=== PATIENT | female | born 1980 | race Caucasian/White ===

== ENCOUNTER → 2017-07-12 13:02 | Outpatient (CLI) | payer OTHER, SELFPAY ==
[2017-07-17 11:23] LABS: HPV Reflexed? NOT INDICATED
== END ==
PROVIDERS: Visit Provider Obstetrics & Gynecology
DX: Z12.4 Encounter for screening for malignant neoplasm of cervix (principal)
CPT/HCPCS: 88175; G0145

== ENCOUNTER → 2018-02-07 12:57 | Outpatient (CLI) | payer OTHER, SELFPAY ==
[2017-06-02 13:32] VITALS: BMI 61.1
[2018-02-07 14:25] LABS: Free T3 2.4 pg/mL (2.18-3.98); T4 Free Direct 0.94 ng/dL (0.76-1.46); Thyroid Stim Hormone (TSH) 1.77 uIU/mL (0.358-3.74)
[2018-02-07 14:29] LABS: Hemoglobin A1c 7.1 % (4.2-6.3)
--- OUTSIDE RECORDS SUMMARY | 2018-03-26 08:12 | XMS RPT_ITS ---
:1980 Author Organization OHIP Care Team Providers Name Role Phone JAMES BILLINGSLEY Referring Unavailable JAMES BILLINGSLEY Attending Unavailable Kadi Dougherty Attending Unavailable Kadi Dougherty Referring Unavailable Kadi Dougherty Primary Care Unavailable Umu Simmons Attending Unavailable Gissell Santacruz Referring Unavailable Noam Gissell Primary Care Unavailable Steph Santos Attending Unavailable PROBLEMS PROBLEMS DATE TYPE CONDITION / CODE ATTENDING STATUS SOURCE 02/05/2017 Active Hypothyroidism, NA Active [facility] unspecified / [facility] Main E03.9(ICD-10) [place] Rep[facility] 08/14/2016 Active Type 2 diabetes NA Active [facility] mellitus with other Clinic Main diabetic kidney [place] complication / Repository E11.29(ICD-10) 08/14/2016 Active Proteinuria, NA Active [facility] unspecified / [facility] R80.9(ICD-10) [place] 08/14/2016 Active Hyperlipidemia, NA Active [facility] unspecified / [facility] E78.5(ICD-10) [place] Rep[facility] 10/15/2017 Active Mixed hyperlipidemia NA Active [facility] / E78.2(ICD-10) Clinic Main [place] Rep[facility] 10/15/2017 Active Other shelter NA Active [facility] (current) drug [facility] Main therapy / [place] Z79.899(ICD-10) Repository 07/12/2017 Unknown Z12.4 - Encounter Steph Santos Active [facility] for screening for [facility] / Repository Z12.4(ICD-10) PROCEDURES PROCEDURES No Procedure Records FoundRESULTS RESULTS FREE T3 Collected: 02/07/2018 Status: F Source: NAN 1:01 PM [facility] REPOSITORY TYPE CODE TESTS RESULT OUT OF RANGE REFERENCE UNITS LAB [id number] 2.18-3.98 pg/mL Normal FREE T3 2.4 Performed By: #### L501.64019, L501.9520, L506.0400 #### [facility] [address] [place], [address] THYROID STIM HORMONE Collected: 02/07/2018 Status: F Source: NAN (TSH) 1:01 PM [facility] REPOSITORY TYPE CODE TESTS RESULT OUT OF RANGE REFERENCE UNITS LAB [id number] 0.358-3.74 uIU/mL Normal TSH 1.77 Performed By: #### L501.20272, L501.9520, L506.0400 #### [facility] [address] [place], [address] T4 FREE DIRECT Collected: 02/07/2018 Status: F Source: NAN 1:01 PM [facility] REPOSITORY TYPE CODE TESTS RESULT OUT OF RANGE REFERENCE UNITS LAB [id number] 0.76-1.46 ng/dL Normal T4 FREE 0.94 DIRECT Performed By: #### L501.57293, L501.9520, L506.0400 #### [facility] [address] [place], [address] HEMOGLOBIN A1C Collected: 02/07/2018 Status: F Source: NAN 1:01 PM [facility] REPOSITORY TYPE CODE TESTS RESULT OUT OF RANGE REFERENCE UNITS LAB [id number] 4.2-6.3 % High HGB A1C 7.1 Performed By: #### L501.9985 #### [facility] [address] [place], [address] PROGRESS Observed: 10/18/2017 Status: COMPLETED Source: [place] 9:54 AM [facility] REPOSITORY HNO ID: [id number] Author: James Billingsley Service: (none) Author Type: Physician Type: Progress Notes Filed: 10/18/2017 10:18 AM Note Text: Patient presents with: Follow Up: Diabetes HPI: Marian Castorena is a 37 year old female who presents to the office today for review of health conditions. Concerns today: Mood, depressed, also irritable and anxious, feeling overwhelmed at times, has been taking her Zoloft 100 mg at bedtime, no SI or Hi, just many stressors between work, 10 year old dtr and helping to care for her brother who is a bilateral amputee now due to skin infection. I have fallen off my wagon. Obesity, Weight 447 lbs, BMI 66, wanting to restart Adipex, tolerated well in the past, Also trying to restart walking for routine exercise, knows needs to restart healthy habits. Was eating keto diet and now is not due to all these stressors. Wants to restart this eating program as well, Ms. Castorena has past history of diabetes. Since our last visit she denies excessive thirst or increased frequency of urination, chest pain or dyspnea , new or unusual visual symptoms and low sugar/hypoglycemic reactions. Follows a diabetic diet generally not very much. She is compliant with medication(s) and is tolerating med(s) without any side effects. She reports checking her glucose on a once a day schedule with sugars in the <200 range. Patient's last HgA1C was Hemoglobin A1C (%) Date Value 10/15/2017 9.9 11/27/2016 6.1 ) Last Ophthalmology exam was within the past 12 months Ms. Castorena reports history of hyperlipidemia. Current therapy includes diet and exercise. Denies side effects of muscle weakness or achiness. Her most recent lipid panels are reviewed. Cholesterol, Total (mg/dL) Date Value 10/15/2017 213 HDL Cholesterol (mg/dL) Date Value 10/15/2017 45 LDL Cholesterol (mg/dL) Date Value 10/15/2017 136 Triglyceride (mg/dL) Date Value 10/15/2017 159 Ms. Castorena indicates a history of hypertension and states that she is feeling well and denies any symptoms referable to elevated blood pressure. Specifically denies headache, chest pain, palpitations, dyspnea and peripheral edema. Patient denies any side effects of her medication(s) and is compliant with their regimen. Last 3 Encounter BP Readings: Date: BP: 10/18/2017 136/80 03/15/2017 130/82 02/05/2017 124/76 She watches her diet for sodium, low fat and low cholesterol generally not very much. She does not check BP's generally. Marian gets minimal exercise. PAST MEDICAL HISTORY Diagnosis Date - Absence of menstruation - Calculus of kidney - CHOLELITH W CHOLECYS NEC 01/07/2006 - Depressive disorder, not elsewhere classified - Diabetes (HCC) 08/2013 - Dysmetabolic syndrome X - GERD (gastroesophageal reflux disease) - HEPATITIS CHRONIC UNSPECIFIED 01/18/2006 Infectious Hep panel negative, Biopsy done, She has done well since 2005 - Morbid obesity (HCC) 02/13/2006 - Other psoriasis 02/13/2006 - PMH - PAST MEDICAL HISTORY OF low HDL - Polycystic ovaries - Pure hypercholesterolemia TG up more than just elevated LDL; HDL good PAST SURGICAL HISTORY Procedure Laterality Date - LAP CHOLECYSTECT/CHOLANGIOGRAPHY 01/10/2006 - PAST SURGICAL HISTORY OF 05/2011 C section Social History Marital status: Single Spouse name: None Years of education: 16 Number of children: 1 Occupational History Occupation Employer Comment [employer]* Social History Main Topics Smoking status: Never Smoker Smokeless tobacco: Never Used Alcohol use: Yes Comment: occasional Drug use: No Sexual activity: Yes Partners with: Male control/protection: Pill Comment: generic for demulin Other Topics Concern No BLOOD TRANSFUSIONS No CAFFEINE No OCCUPATIONAL EXPOSURE No HOBBY HAZARD No SLEEP CONCERN No STRESS CONCERN No WEIGHT CONCERN No DIET Yes BACK CARE No EXERCISE Yes BIKE HELMET No SEAT BELT No SELF EXAMS No Social History Narrative She works at [employer]. FAMILY HISTORY Problem Relation Age of Onset - Diabetes Mother ASCV, Uterine Cancer, PE post cardiac ablation - Hypertension Father and CVA - Diabetes Sister - Diabetes Brother hypertension - Cancer Mother uterine - Heart Maternal Grandfather DC and blood clot/passed from DC, blood clot - other (Pulmonary Embolism [Other]) Sister - Cervical Cancer Sister Allergies: ALLERGIES Allergen Reactions - Belviq [Lorcaserin] Other: See Comments Caused depression - Flonase [Fluticason* Other: See Comments Irritated nose and made her feel more congested - Invokana [Canaglifl* Other: See Comments Yeast infection - Lisinopril Cough - Metformin Diarrhea She has tried metformin and metformin ER. Current Meds: dulaglutide (TRULICITY) 0.75 mg / 0.5 ml subcutaneous pen injector Inject 0.75 mg Subcutaneously Once Each Week Inject Dose Once Weekly Discard Pen after use sertraline (ZOLOFT) 100 mg tablet TAKE 1 TABLET BY MOUTH ONCE DAILY. losartan (COZAAR) 25 mg tablet TAKE 1 TABLET BY MOUTH ONCE DAILY. blood sugar diagnostic (FREESTYLE INSULINX TEST STRIPS) test strip Test blood sugars three times a day as directed DX: E11.65 insulin glargine (TOUJEO SOLOSTAR) 300 unit/mL (1.5 mL) inpn INJECT 70 UNITS SUBCUTANEOUSLY ONCE DAILY. omeprazole (PRILOSEC) 20 mg capsule TAKE 1 CAPSULE BY MOUTH DAILY BEFORE BREAKFAST. albuterol (PROVENTIL) 5 mg/mL nebu Inhale 0.5 mL as instructed one time only for 1 dose. 1 DOSE NOW - BACK OFFICE. PLACE 0.5 ML PER DROPPER AND 2.5 ML OF NORMAL SALINE INTO RESERVOIR. albuterol HFA (PROVENTIL HFA, VENTOLIN HFA) 90 mcg/actuation inhaler Inhale 2 Puffs as instructed every 4 hours as needed for Wheezing/Shortness of Breath (cough). Lancets lancets Test blood sugar(s) 1 daily. Dx: 790.21. Insulin: No cetirizine (ZYRTEC) 10 mg tablet Take 1 tablet by mouth once daily as needed. dexamethasone 0.1% 0.1 % ophthalmic solution 1 Drop twice daily as needed (ear canal itching/eczema). LORazepam (ATIVAN) 1 mg tablet Take 1 tablet by mouth twice daily. Insulin [place], Disposable, (PEN NEEDLES) 31 gauge x 1/4 ndle UAD for injections 6 times daily. Phentermine HCl (ADIPEX-P) 37.5 mg tablet Take 1 tablet by mouth once daily for 30 days. BMI 66 buPROPion XL (WELLBUTRIN XL) 150 mg 24 hr tablet Take 1 tablet by mouth once daily. In the morning Review of Systems: The remainder of the review of systems is negative. PE: 10/18/17 0930 BP: 136/80 Pulse: 80 Resp: 20 Temp: 36.4 ?C (97.6 ?F) TempSrc: Left Tympanic Weight: (!) 202.8 kg (447 lb) Gen: AANDO, NAD, non-toxic appearing, morbidly obese, tearful, cooperative HEENT: NT/AC, PERRLA, EOMs intact b/l, nares clear and patent b/l, pharynx without erythema, exudate or lesions. Uvula midline.MMM Neck: supple, No cervical LAD, no thyromegaly, no carotid bruits CV: RRR, normal S1 and S2, no murmurs, no gallops, no rubs, Pulses 2+ and symmetric in UE and LE b/l Lungs: normal respiratory effort, CTA b/l, no wheezing or rhonchi or rales Abd: soft, morbidly obese with pannus MS: antalgic gait Neuro: CN II-XII intact b/l grossly Skin: warm, dry, intact, No rashes or lesions on exposed skin. ASSESSMENT/PLAN: 1. Uncontrolled type 2 diabetes mellitus without complication, with long-term current use of insulin ([facility]) - ICD9: 250.02, V58.67, ICD10: E11.65, Z79.4 (primary diagnosis) uncontrolled poorly controlled Poor adherence to plan of care. - Continue current medications - Blood glucose monitoring on a once a day schedule - Encouraged regular aerobic exercise and weight loss - Follow up in 3 months, sooner should any other issues arise. - Discussed diabetic education issues of shelter diabetic complications, diet, medications- side effects and need for compliance and importance of exercise with patient. - BP goal of <130/80 - LDL goal of <100 - HGB A1C 2. BMI 60.0-69.9, adult ([facility]) - ICD9: V85.44, ICD10: Z68.44 - Lengthy discussion in office today regarding diet and exercise. Discussed use of small plate to eat meals from, drink 1 glass of water 10-15 minutes prior to eating meal, drink 8 glasses of water daily, eat fresh fruit and vegetable during meal first then lean protein such as grilled/baked chicken breast or fish, limit carbohydrate intake (less pasta, breads, rice and snack foods) as well as limiting sugars (desserts etc). Important to count / track your calories and exercise as well. - 1st month adipex, aware of possible SE with medication - PHENTERMINE 37.5 MG TABLET 3. Acquired hypothyroidism - ICD9: 244.9, ICD10: E03.9 - Instructed patient on importance of taking on an empty stomach either first thing in the morning or at bedtime. - TSH BLD - T4 FREE/FREE THYROX - T3 BLD 4. JIMMY (generalized anxiety disorder) - ICD9: 300.02, ICD10: F41.1 - continue Zoloft, start on Wellbutrin in AM, f/u in office in 1 month, would also benefit from counseling - BUPROPION XL 150 MG TAB 5. Dysthymia - ICD9: 300.4, ICD10: F34.1 - see above - BUPROPION XL 150 MG TAB James Billingsley DO PHQ 9 score of 19 JIMMY 7 score of 18 To ER if develops chest pain, shortness of breath, or severe worsening of symptoms. Discussed risks, benefits, alternatives, and potential side effects of medications. Patient expressed understanding and agreed with the plan. James Billingsley DO [address] [place] [address] CORRINE Observed: 10/18/2017 Status: COMPLETED Source: [facility] 9:20 AM [facility] REPOSITORY Office Visit (FAMPWS) MARIAN CASTORENA ([id number]) 1980 F Date Time Provider Department 10/18/17 9:20 AM JAMES BILLINGSLEY During your visit today, we recorded the following information about you: Temperature Pulse Respiration Blood pressure 97.6 degrees 80/minute 20/minute 136/80 Weight 202.8 kg James Billingsley DO 10/18/2017 10:18 AM Signed Patient presents with: Follow Up: Diabetes HPI: Marian Castorena is a 37 year old female who presents to the office today for review of health conditions. Concerns today: Mood, depressed, also irritable and anxious, feeling overwhelmed at times, has been taking her Zoloft 100 mg at bedtime, no SI or Hi, just many stressors between work, 10 year old dtr and helping to care for her brother who is a bilateral amputee now due to skin infection. I have fallen off my wagon. Obesity, Weight 447 lbs, BMI 66, wanting to restart Adipex, tolerated well in the past, Also trying to restart walking for routine exercise, knows needs to restart healthy habits. Was eating keto diet and now is not due to all these stressors. Wants to restart this eating program as well, Ms. Castorena has past history of diabetes. Since our last visit she denies excessive thirst or increased frequency of urination, chest pain or dyspnea , new or unusual visual symptoms and low sugar/hypoglycemic reactions. Follows a diabetic diet generally not very much. She is compliant with medication(s) and is tolerating med(s) without any side effects. She reports checking her glucose on a once a day schedule with sugars in the <200 range. Patient's last HgA1C was Hemoglobin A1C (%) Date Value 10/15/2017 9.9 11/27/2016 6.1 ) Last Ophthalmology exam was within the past 12 months Ms. Castorena reports history of hyperlipidemia. Current therapy includes diet and exercise. Denies side effects of muscle weakness or achiness. Her most recent lipid panels are reviewed. Cholesterol, Total (mg/dL) Date Value 10/15/2017 213 HDL Cholesterol (mg/dL) Date Value 10/15/2017 45 LDL Cholesterol (mg/dL) Date Value 10/15/2017 136 Triglyceride (mg/dL) Date Value 10/15/2017 159 Ms. Castorena indicates a history of hypertension and states that she is feeling well and denies any symptoms referable to elevated blood pressure. Specifically denies headache, chest pain, palpitations, dyspnea and peripheral edema. Patient denies any side effects of her medication(s) and is compliant with their regimen. Last 3 Encounter BP Readings: Date: BP: 10/18/2017 136/80 03/15/2017 130/82 02/05/2017 124/76 She watches her diet for sodium, low fat and low cholesterol generally not very much. She does not check BP's generally. Marian gets minimal exercise. PAST MEDICAL HISTORY Diagnosis Date - Absence of menstruation - Calculus of kidney - CHOLELITH W CHOLECYS NEC 01/07/2006 - Depressive disorder, not elsewhere classified - Diabetes (HCC) 08/2013 - Dysmetabolic syndrome X - GERD (gastroesophageal reflux disease) - HEPATITIS CHRONIC UNSPECIFIED 01/18/2006 Infectious Hep panel negative, Biopsy done, She has done well since 2005 - Morbid obesity (HCC) 02/13/2006 - Other psoriasis 02/13/2006 - PMH - PAST MEDICAL HISTORY OF low HDL - Polycystic ovaries - Pure hypercholesterolemia TG up more than just elevated LDL; HDL good PAST SURGICAL HISTORY Procedure Laterality Date - LAP CHOLECYSTECT/CHOLANGIOGRAPHY 01/10/2006 - PAST SURGICAL HISTORY OF 05/2011 C section Social History Marital status: Single Spouse name: None Years of education: 16 Number of children: 1 Occupational History Occupation Employer Comment [employer]* Social History Main Topics Smoking status: Never Smoker Smokeless tobacco: Never Used Alcohol use: Yes Comment: occasional Drug use: No Sexual activity: Yes Partners with: Male control/protection: Pill Comment: generic for demulin Other Topics Concern No BLOOD TRANSFUSIONS No CAFFEINE No OCCUPATIONAL EXPOSURE No HOBBY HAZARD No SLEEP CONCERN No STRESS CONCERN No WEIGHT CONCERN No DIET Yes BACK CARE No EXERCISE Yes BIKE HELMET No SEAT BELT No SELF EXAMS No Social History Narrative She works at [employer]. FAMILY HISTORY Problem Relation Age of Onset - Diabetes Mother ASCV, Uterine Cancer, PE post cardiac ablation - Hypertension Father and CVA - Diabetes Sister - Diabetes Brother hypertension - Cancer Mother uterine - Heart Maternal Grandfather DC and blood clot/passed from DC, blood clot - other (Pulmonary Embolism [Other]) Sister - Cervical Cancer Sister Allergies: ALLERGIES Allergen Reactions - Belviq [Lorcaserin] Other: See Comments Caused depression - Flonase [Fluticason* Other: See Comments Irritated nose and made her feel more congested - Invokana [Canaglifl* Other: See Comments Yeast infection - Lisinopril Cough - Metformin Diarrhea She has tried metformin and metformin ER. Current Meds: dulaglutide (TRULICITY) 0.75 mg / 0.5 ml subcutaneous pen injector Inject 0.75 mg Subcutaneously Once Each Week Inject Dose Once Weekly Discard Pen after use sertraline (ZOLOFT) 100 mg tablet TAKE 1 TABLET BY MOUTH ONCE DAILY. losartan (COZAAR) 25 mg tablet TAKE 1 TABLET BY MOUTH ONCE DAILY. blood sugar diagnostic (FREESTYLE INSULINX TEST STRIPS) test strip Test blood sugars three times a day as directed DX: E11.65 insulin glargine (TOUJEO SOLOSTAR) 300 unit/mL (1.5 mL) inpn INJECT 70 UNITS SUBCUTANEOUSLY ONCE DAILY. omeprazole (PRILOSEC) 20 mg capsule TAKE 1 CAPSULE BY MOUTH DAILY BEFORE BREAKFAST. albuterol (PROVENTIL) 5 mg/mL nebu Inhale 0.5 mL as instructed one time only for 1 dose. 1 DOSE NOW - BACK OFFICE. PLACE 0.5 ML PER DROPPER AND 2.5 ML OF NORMAL SALINE INTO RESERVOIR. albuterol HFA (PROVENTIL HFA, VENTOLIN HFA) 90 mcg/actuation inhaler Inhale 2 Puffs as instructed every 4 hours as needed for Wheezing/Shortness of Breath (cough). Lancets lancets Test blood sugar(s) 1 daily. Dx: 790.21. Insulin: No cetirizine (ZYRTEC) 10 mg tablet Take 1 tablet by mouth once daily as needed. dexamethasone 0.1% 0.1 % ophthalmic solution 1 Drop twice daily as needed (ear canal itching/eczema). LORazepam (ATIVAN) 1 mg tablet Take 1 tablet by mouth twice daily. Insulin [place], Disposable, (PEN NEEDLES) 31 gauge x 1/4 ndle UAD for injections 6 times daily. Phentermine HCl (ADIPEX-P) 37.5 mg tablet Take 1 tablet by mouth once daily for 30 days. BMI 66 buPROPion XL (WELLBUTRIN XL) 150 mg 24 hr tablet Take 1 tablet by mouth once daily. In the morning Review of Systems: The remainder of the review of systems is negative. PE: 10/18/17 0930 BP: 136/80 Pulse: 80 Resp: 20 Temp: 36.4 ?C (97.6 ?F) TempSrc: Left Tympanic Weight: (!) 202.8 kg (447 lb) Gen: AANDO, NAD, non-toxic appearing, morbidly obese, tearful, cooperative HEENT: NT/AC, PERRLA, EOMs intact b/l, nares clear and patent b/l, pharynx without erythema, exudate or lesions. Uvula midline.MMM Neck: supple, No cervical LAD, no thyromegaly, no carotid bruits CV: RRR, normal S1 and S2, no murmurs, no gallops, no rubs, Pulses 2+ and symmetric in UE and LE b/l Lungs: normal respiratory effort, CTA b/l, no wheezing or rhonchi or rales Abd: soft, morbidly obese with pannus MS: antalgic gait Neuro: CN II-XII intact b/l grossly Skin: warm, dry, intact, No rashes or lesions on exposed skin. ASSESSMENT/PLAN: 1. Uncontrolled type 2 diabetes mellitus without complication, with long-term current use of insulin ([facility]) - ICD9: 250.02, V58.67, ICD10: E11.65, Z79.4 (primary diagnosis) uncontrolled poorly controlled Poor adherence to plan of care. - Continue current medications - Blood glucose monitoring on a once a day schedule - Encouraged regular aerobic exercise and weight loss - Follow up in 3 months, sooner should any other issues arise. - Discussed diabetic education issues of [facility] diabetic complications, diet, medications- side effects and need for compliance and importance of exercise with patient. - BP goal of <130/80 - LDL goal of <100 - HGB A1C 2. BMI 60.0-69.9, adult (HCC) - ICD9: V85.44, ICD10: Z68.44 - Lengthy discussion in office today regarding diet and exercise. Discussed use of small plate to eat meals from, drink 1 glass of water 10- 15 minutes prior to eating meal, drink 8 glasses of water daily, eat fresh fruit and vegetable during meal first then lean protein such as grilled/baked chicken breast or fish, limit carbohydrate intake (less pasta, breads, rice and snack foods) as well as limiting sugars (desserts etc). Important to count / track your calories and exercise as well. - 1st month adipex, aware of possible SE with medication - PHENTERMINE 37.5 MG TABLET 3. Acquired hypothyroidism - ICD9: 244.9, ICD10: E03.9 - Instructed patient on importance of taking on an empty stomach either first thing in the morning or at bedtime. - TSH BLD - T4 FREE/FREE THYROX - T3 BLD 4. JIMMY (generalized anxiety disorder) - ICD9: 300.02, ICD10: F41.1 - continue Zoloft, start on Wellbutrin in AM, f/u in office in 1 month, would also benefit from counseling - BUPROPION XL 150 MG TAB 5. Dysthymia - ICD9: 300.4, ICD10: F34.1 - see above - BUPROPION XL 150 MG TAB James Billingsley DO PHQ 9 score of 19 JIMMY 7 score of 18 To ER if develops chest pain, shortness of breath, or severe worsening of symptoms. Discussed risks, benefits, alternatives, and potential side effects of medications. Patient expressed understanding and agreed with the plan. James Billingsley DO [address] [place] [address] Allergies As of Date: 10/18/2017 Noted Allergy Reaction BELVIQ (LORCASERIN) 08/14/2016 14 - Other: See Comments Comments: Caused depression FLONASE (FLUTICASONE PROPIONATE) 08/01/2010 14 - Other: See Comments Comments: Irritated nose and made her feel more congested INVOKANA (CANAGLIFLOZIN) 06/23/2015 14 - Other: See Comments Comments: Yeast infection LISINOPRIL 04/09/2016 3 - Cough METFORMIN 09/10/2013 6 - Diarrhea Comments: She has tried metformin and metformin ER. Date Reviewed: 10/18/2017 Reviewed by: Nereyda Mendez LPN - Fully Assessed Reason for Visit: Follow Up [171] Cmt: Diabetes Primary Visit Diagnosis:Uncontrolled type 2 diabetes mellitus without complication, with long-term current use of insulin (HCC) [E11.65, Z79.4] Other Visit Diagnoses:BMI 60.0-69.9, adult (HCC) [Z68.44] Acquired hypothyroidism [E03.9] JIMMY (generalized anxiety disorder) [F41.1] Dysthymia [F34.1] Order(s):Phentermine HCl (ADIPEX-P) 37.5 mg tabletTake 1 tablet by mouth once daily for 30 days. BMI 66Disp: 30 tabletRfl: 0 buPROPion XL (WELLBUTRIN XL) 150 mg 24 hr tabletTake 1 tablet by mouth once daily. In the morningDisp: 30 tabletRfl: 3 HGB A1C [[id number]] Order #: [id number] FUTURE TSH BLD [SQTSH] Order #: [id number] FUTURE T4 FREE/FREE THYROX [SQFT4] Order #: [id number] FUTURE T3 BLD [SQT3] Order #: [id number] FUTURE Prescriptions as of 10/18/2017 Sig: DULAGLUTIDE 0.75 MG/0.5 ML CASON* Inject 0.75 mg Subcutaneously* SERTRALINE 100 MG TABLET TAKE 1 TABLET BY MOUTH ONCE D* LOSARTAN 25 MG TABLET TAKE 1 TABLET BY MOUTH ONCE D* BLOOD SUGAR DIAGNOSTIC STRIPS Test blood sugars three times* INSULIN GLARGINE (U-300) CONC* INJECT 70 UNITS SUBCUTANEOUSL* OMEPRAZOLE 20 MG CAPSULE,DALTON* TAKE 1 CAPSULE BY MOUTH DAILY* ALBUTEROL SULFATE CONCENTRATE* Inhale 0.5 mL as instructed o* ALBUTEROL SULFATE HFA 90 MCG/* Inhale 2 Puffs as instructed * LANCETS Test blood sugar(s) 1 daily. * CETIRIZINE 10 MG TABLET Take 1 tablet by mouth once d* DEXAMETHASONE 0.1 % EYE DROPS 1 Drop twice daily as needed * LORAZEPAM 1 MG TABLET Take 1 tablet by mouth twice * PEN NEEDLE, DIABETIC 31 GAUGE* UAD for injections 6 times da* PHENTERMINE 37.5 MG TABLET Take 1 tablet by mouth once d* BUPROPION XL 150 MG TAB Take 1 tablet by mouth once d* More... Problem List As Of Date 10/18/2017 Noted Resolved POLYCYSTIC OVARIES [E28.2] INVALID FOR* BMI 60.0-69.9, adult (HCC) [Z68.44] INVALID FOR* Hypothyroidism [E03.9] INVALID FOR* OTHER PSORIASIS [L40.8] INVALID FOR* Dysmetabolic syndrome X [E88.81] 08/10/2013 PLANTAR Fasciitis, left [M72.2] INVALID FOR*08/13/2014 More... HPV (human papillomavirus) INVALID FOR*08/13/2014 More... Depressive disorder, not elsewhere classified [* 08/13/2014 Diabetes mellitus type 2, uncontrolled, without*INVALID FOR*01/28/2015 More... Diabetes mellitus type 2, uncontrolled, without*INVALID FOR* Family history of clotting disorder [Z83.2] INVALID FOR*05/30/2015 Anxiety neurosis [F41.1] INVALID FOR* Recurrent major depression in partial remission*INVALID FOR* Acquired hypothyroidism [E03.9] INVALID FOR* Prothrombin gene mutation (HCC) [D68.52] INVALID FOR* More... 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 BMI 66 BUPROPION XL 150 MG TAB 30 t* 3 10/18/2017 Route: ORAL Sig: Take 1 tablet by mouth once daily. In the morning Medications Discontinued During This Encounter insulin glargine (TOUJEO SOLOSTAR) 3* 6 Pen 3 03/12/2017 10/18/2017 Cmt: Dose update, this replaces previous RX, she is running out insulin Route: SUBCUTANEOUS Sig: Inject 70 Units subcutaneously once daily. Disc: Reason for discontinue is not on file. Encounter Status:Closed by JAMES BILLINGSLEY DO on 10/18/17 COMP METABOLIC PANEL Collected: 10/15/2017 Status: F Source: [place] 9:05 AM [facility] REPOSITORY TYPE CODE TESTS RESULT OUT OF REFERENCE UNITS RANGE LAB TP 6.3-8.0 g/dL Protein, Total 7.7 LAB ALB 3.9-4.9 g/dL Albumin 3.9 LAB CA 8.5-10.2 mg/dL Calcium, Total 9.2 LAB TBIL 0.2-1.3 mg/dL Bilirubin, Total 0.3 LAB ALKP 32-117 U/L Alkaline Phosphatase 74 LAB AST 13-35 U/L AST High 36 LAB GLU 74-99 mg/dL Glucose High 135 Result Comment: The [place] Diabetes Association (ADA) provides guidance for cutoff values for fasting glucose and random glucose. The ADA defines fasting as no caloric intake for at least 8 hours. Fas ting plasma glucose results between 100 to 125 mg/dL indicate increased risk for diabetes (prediabetes). Fasting plasma glucose results greater than or equal to 126 mg/dL meet the criteria for diagnosis of diabetes. In the absence of unequivocal hyperglycemia, results should be confirmed by repeat testing. In a patient with classic symptoms of hyperglycemia or hyperglycemic crisis, random plasma glucose results greater than or equal to 200 mg/dL meet the criteria for diagnosis of diabetes. Reference: Standards of Medical Care in Diabetes 2016, [place] Diabetes Association. Diabetes Care. 2016.39(Suppl 1). LAB BUN 7-21 mg/dL BUN 7 LAB CRET 0.58-0.96 mg/dL Creatinine Low 0.55 LAB NA 136-144 mmol/L Sodium 139 LAB K 3.7-5.1 mmol/L Potassium 4.3 LAB CL 97-105 mmol/L Chloride 99 LAB CO2 22-30 mmol/L CO2 26 LAB AGAP 9-18 mmol/L Anion Gap 14 LAB ALT 7-38 U/L ALT 28 LAB GFRAA eGFR- Amer. >60 LAB GFRNAA . eGFR-All Other Races >60 Result Comment: eGFR (Estimated GFR) Units of measure: mL/min/1.73 meters squared eGFR is derived from the reexpressed MDRD Study equation using the following parameters: serum creatinine, age, gender and race. The creatinine assay has been calibrated to be traceable to IDMS. An eGFR <60 mL/min/1.73m2 for >3 months is consistent with chronic kidney disease. Refer to KDOQI guidelines for clinical interpretation. In patients with unstable renal function, e.g. those with acute kidney injury, the eGFR may not accurately reflect actual GFR. Performed By: #### CMP, LIPB, TSH, HBA1C #### [facility] [address] [place], [place] [address] LIPID PANEL, BASIC Collected: 10/15/2017 Status: F Source: [place] 9:05 AM [facility] REPOSITORY TYPE CODE TESTS RESULT OUT OF REFERENCE UNITS RANGE LAB CHOL <200 mg/dL Cholesterol High 213 Result Comment: <200 mg/dL, Desirable 200-239 mg/dL, Borderline high >239 mg/dL, High LAB TRIGLY <150 mg/dL Triglyceride High 159 Result Comment: <150 mg/dL, Normal 150-199 mg/dL, Borderline high 200-499 mg/dL, High >499 mg/dL, Very high LAB HDL >39 mg/dL HDL-Cholesterol 45 Result Comment: 40-59 mg/dL, Acceptable >59 mg/dL, High: Negative risk factor for coronary heart disease <40 mg/dL, Low: Positive risk factor for coronary heart disease LAB LDL <100 mg/dL LDL-Cholesterol High 136 Result Comment: <100 mg/dL, Optimal 100-129 mg/dL, Near optimal/above optimal 130-159 mg/dL, Borderline high 160-189 mg/dL, High >189 mg/dL, Very high Secondary prevention optimal LDL Cholesterol levels are recommended to be < 70 mg/dL LAB NONHDL <130 mg/dL Non HDL High Cholesterol 168 Result Comment: <130 mg/dL, Optimal 130-159 mg/dL, Near optimal/above optimal 160-189 mg/dL, Borderline high 190-219 mg/dL, High >219 mg/dL, Very high Secondary prevention optimal non HDL Cholesterol levels are recommended to be < 100 mg/dL LAB FT hrs Fasting Time 13 LAB VLDL <30 mg/dL High VLDL Cholesterol 32 LAB TCHDL <5.10 TC:HDL Ratio 4.73 LAB LDLHDL <2.54 High LDL:HDL Ratio 3.02 Result Comment: Reference: 1. National Cholesterol Education Program ATP III Guideline At-A-Glance Quick Desk Reference: National Heart, Lung, and Blood [place]. National Institutes of Health. 2001: NIH Publication No. 01-3305. 2. An International Atherosclerosis Society position paper: global recommendations for the management of dyslipidemia: executive summary, Atherosclerosis. 2014: 232(2):410-413. Performed By: #### CMP, LIPB, TSH, HBA1C #### [facility] [address] [place], [place] [address] TSH Collected: 10/15/2017 Status: F Source: [place] 9:05 AM [facility] REPOSITORY TYPE CODE TESTS RESULT OUT OF RANGE REFERENCE UNITS LAB TSH 0.400-5.500 uU/mL TSH 3.080 Result Comment: If the patient is , TSH reference range varies by gestational period: First Trimester 0.100-2.500 uU/mL Second Trimester 0.200-3.000 uU/mL Third Trimester 0.300-3.000 uU/mL References: 1. Workman, Marcelo M, Delfino EK, et al. Management of Thyroid Dysfunction during and : An Endocrine Society Clinical Practice Guideline. J Clin Endocrinol Metab, 2012:97:4968-7626. 2. Juan CAMARENA. Overview of thyroid disease in . UpToDate. 2016. Accessed on August 12, 2015. Performed By: #### CMP, LIPB, TSH, HBA1C #### [facility] [address] [place], [place] [address] HEMOGLOBIN A1C Collected: 10/15/2017 Status: F Source: [place] 9:05 [facility] REPOSITORY TYPE CODE TESTS RESULT OUT OF REFERENCE UNITS RANGE LAB HGBA1C 4.3-5.6 % High Hemoglobin A1c 9.9 LAB HBA0 mg/dL Est. Average Glucose 237 Result Comment: eAG: (Estimated average glucose) is a calculated value from HgbA1c and is aircraft sales representative of the average blood glucose level in the last 2-3 month period. Performed By: #### CMP, LIPB, TSH, HBA1C #### [facility] [address] [place] [id number] ALBUMIN/CREAT RATIO Collected: 10/15/2017 Status: F Source: [place] 9:05 [facility] REPOSITORY TYPE CODE TESTS RESULT OUT OF REFERENCE UNITS RANGE LAB UCRR 20-300 mg/dL Creatinine,Ur 83.1 ine,Ran LAB UALBR 0.0-23.0 mg/L High Albumin Urine 141.9 Random LAB UALBCR 0-30 mg/g High Albumin/Creat 171 Ratio Result Comment: 30 to 300 mg/g indicates an increased risk for diabetic nephropathy. Greater than 300 mg/g is consistent with clinical nephropathy. (Am J Kidney Disease 1995, 25:107) Performed By: #### UACR #### [facility] [address] [place], [place] [address] CNPTOUTREACH Observed: 10/01/2017 Status: COMPLETED Source: [place] 12:00 AM [facility] REPOSITORY Patient Outreach (FAMPST) MARIAN CASTORENA ([id number]) 1980 F [facility] Date Time Provider Department 10/01/17 JAMES BILLINGSLEY FAMPST During your visit today, we recorded the following information about you: Allergies As of Date: 10/01/2017 Noted Allergy Reaction BELVIQ (LORCASERIN) 08/14/2016 14 - Other: See Comments Comments: Caused depression FLONASE (FLUTICASONE PROPIONATE) 08/01/2010 14 - Other: See Comments Comments: Irritated nose and made her feel more congested INVOKANA (CANAGLIFLOZIN) 06/23/2015 14 - Other: See Comments Comments: Yeast infection LISINOPRIL 04/09/2016 3 - Cough METFORMIN 09/10/2013 6 - Diarrhea Comments: She has tried metformin and metformin ER. Date Reviewed: 03/15/2017 Reviewed by: Marixa ([facility]) CASEY Urban.POND SUPERVISOR - Fully Assessed Visit Diagnosis:Medication management [Z79.899] Order(s):ALBUMIN/CREAT RATIO RND UR [SQUACR] Order #: [id number] FUTURE Prescriptions as of 10/01/2017 Sig: X SERTRALINE 100 MG TABLET TAKE 1 TABLET BY MOUTH ONCE D* X LOSARTAN 25 MG TABLET TAKE 1 TABLET BY MOUTH ONCE D* BLOOD SUGAR DIAGNOSTIC STRIPS Test blood sugars three times* X INSULIN GLARGINE (U-300) CONC* INJECT 70 UNITS SUBCUTANEOUSL* X OMEPRAZOLE 20 MG CAPSULE,DALTON* TAKE 1 CAPSULE BY MOUTH DAILY* ALBUTEROL SULFATE CONCENTRATE* Inhale 0.5 mL as instructed o* ALBUTEROL SULFATE HFA 90 MCG/* Inhale 2 Puffs as instructed * X INSULIN GLARGINE (U-300) CONC* Inject 70 Units subcutaneousl* X DULAGLUTIDE 0.75 MG/0.5 ML CASON* Inject 0.75 mg Subcutaneously* LANCETS Test blood sugar(s) 1 daily. * CETIRIZINE 10 MG TABLET Take 1 tablet by mouth once d* DEXAMETHASONE 0.1 % EYE DROPS 1 Drop twice daily as needed * X LORAZEPAM 1 MG TABLET Take 1 tablet by mouth twice * PEN NEEDLE, DIABETIC 31 GAUGE* UAD for injections 6 times da* More... Problem List As Of Date 10/01/2017 Noted Resolved POLYCYSTIC OVARIES [E28.2] INVALID FOR* BMI 60.0-69.9, adult (HCC) [Z68.44] INVALID FOR* Hypothyroidism [E03.9] INVALID FOR* OTHER PSORIASIS [L40.8] INVALID FOR* Dysmetabolic syndrome X [E88.81] 08/10/2013 PLANTAR Fasciitis, left [M72.2] INVALID FOR*08/13/2014 More... HPV (human papillomavirus) INVALID FOR*08/13/2014 More... Depressive disorder, not elsewhere classified [* 08/13/2014 Diabetes mellitus type 2, uncontrolled, without*INVALID FOR*01/28/2015 More... Diabetes mellitus type 2, uncontrolled, without*INVALID FOR* Family history of clotting disorder [Z83.2] INVALID FOR*05/30/2015 Anxiety neurosis [F41.1] INVALID FOR* Recurrent major depression in partial remission*INVALID FOR* Acquired hypothyroidism [E03.9] INVALID FOR* Prothrombin gene mutation (HCC) [D68.52] INVALID FOR* More... 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)*INVALID FOR* Essential hypertension [I10] INVALID FOR* Well adult exam [Z00.00] INVALID FOR* Patient on ketogenic diet [Z78.9] INVALID FOR* Hypothyroidism, acquired [E03.9] INVALID FOR* Encounter Status:Closed by OLIVERIO PRODUSER on 12/06/17 PAP I-G W/RFX HRHPV Collected: 07/12/2017 Status: F Source: [place] 9:00 AM [facility] REPOSITORY Order Comment: CYTOLOGY INFORMATION: - CLINICAL INFORMATION: - DATE LMP/MENOPAUSE: 06/19/17 LMP - COLLECTION VIAL: Thin Prep Vial - CHANGE PERSON SOURCE: CERVICAL/ENDOCERVICAL - COLLECTION TECHNIQUE: BRUSH/SPATULA Specimen Comment: [id number] Specimen Comment: No. of containers..01 ThinPrep Vial TYPE CODE TESTS RESULT OUT OF RANGE REFERENCE UNITS LAB L7400.0800 . Normal DIAGN Comment Result Comment: NEGATIVE FOR INTRAEPITHELIAL LESION AND MALIGNANCY. LAB L7400.0900 . Normal ADEQ Comment Result Comment: Satisfactory for evaluation. Endocervical and/or squamous metaplastic cells (endocervical component) are present. LAB L7400.1400 . Normal PERFORM Comment Result Comment: Indira Stack, Swine Nutritionist (ASCP) LAB L7400.2575 . Normal TEST METHOD Comment Result Comment: This liquid based ThinPrep(R) pap test was screened with the use of an image guided system. LAB L7400.2600 . Normal . COMM LAB L7400.2700 . Normal PAPSMR Comment Result Comment: The Pap smear is a screening test designed to aid in the detection of premalignant and malignant conditions of the uterine cervix. It is not a diagnostic procedure and should not be used as the sole means of detecting cervical cancer. Both false-positive and false-negative reports do occur. LAB L7400.2800 . Normal HPV RFLX Comment Result Comment: The HPV DNA reflex criteria were not met with this specimen result therefore, no HPV testing was performed. Performed at: [address] [id number] Commercial Helicopter Pilot: Anh Jimenez MD, Phone: [phone] Performed By: #### L7400.0350 #### [facility] (refer to report for specific site) refer to report for address and phone number URGENT CARE VISIT Observed: 06/03/2017 Status: F Source: [place] RE[place] 9:08 AM [facility] REPOSITORY [facility] [address] [place] [address] [address] [place] [id number] OFFICE VISIT Date of Service: 06/02/17 MR#: [id number] Acct: [id number] Name: MARIAN CASTORENA Rep #: [id number] : 1980 Provider: Umu Simmons Age/Sex: 36/F Location: [facility] Status: Signed Intake Vital Signs06/02/17 Height 5 ft 9 in 06/02/17 Weight: 414 lb 04/08/18 Body Mass Index (BMI) 61.1 06/02/17 Blood Pressure 128/86 Intake Visit Reasons: Conjunctivitis Printmaker Required: No Is patient in pain?: No Allergies No Known Allergies Allergy (Verified 06/02/17 13:32) Medications cetirizine 10 mg capsule 10 mg PO QDAY 06/02/17 [History Confirmed 06/02/17] ciprofloxacin 0.3 % eye drops 2 drp OPHTHALMIC Q2H 2 Days #2.5 ml 06/02/17 [Rx Confirmed 06/02/17] insulin glargine (U-300) 300 unit/mL (1.5 mL) subcutaneous pen 10 unit SC QDAY 06/02/17 [History Confirmed 06/02/17] sertraline 25 mg tablet 25 mg PO QDAY 06/02/17 [History Confirmed 06/02/17] PFSH Medical History Anemia (Acute) Diabetes (Acute) Surgical History History of (Acute) History of cholecystectomy (Acute) Family History Other Diabetes Heart disease Social History Smoking Status: Never smoker alcohol intake: never HPI HPI Details: MARIAN CASTORENA, is a 36 F who presents to the office today for concerns over conjunctivitis. Patient states that her symptoms started last night where she has green drainage from her right eye. She also notes that it is itchy. She does not have any fever or chills. She has not been exposed to it. She does not have any recent URIs. ROS Const Constitutional: No body ache, fever(s), fatigue or headache(s) Eyes Eyes: Positive for light sensitivity and discharge; no change in vision ENT ENT: No nasal congestion, nasal discharge, sinus pressure, post nasal drip, sore throat or headache(s) Resp Respiratory: No cough Cardio Cardiology: No chest pain at rest, chest pain with exertion or shortness of breath Gastro GI: No diarrhea, nausea/dyspepsia or Vomiting blood/hematemesis Neuro Neurology: No headache(s) Endo Endocrine: No fatigue Exam Const General: cooperative, no acute distress Nutritional Appearance: obese HENMT Head: normal to inspection Ears: TM's normal bilaterally Nose: nasal mucous membranes and turbinates normal, no nasal discharge Throat: posterior oropharynx normal Eyes Visual Byrne: normal visual byrne by confrontation Alignment and Position: alignment normal Eyelids: eyelids normal Conjunctivae: conjunctival abnormality right Sclera: sclerae normal Cornea: corneas normal Pupils: PERRL EOM: EOM intact bilaterally Neck Neck: normal visual inspection, no lymphadenopathy Neck mass: No Resp Effort AND Inspection: normal respiratory effort Auscultation: Bilateral: Clear to Auscultation Cardio Palpation: normal PMI Rate: regular rate Rhythm: regular rhythm Heart Sounds: S1 normal, S2 normal, no click, no gallops, no murmurs Neuro General: alert, awake, oriented x3, CN's II-XI intact bilaterally, no focal motor deficits Assessment AND Plan 1. Acute bacterial conjunctivitis of right eye H10.31 Plan Advised to use drops as instructed. Advised to not use contacts or makeup. Advised that she could also wash I with warm washcloth with Christophe's and Hcristophe's baby shampoo if no improvement she should see her primary care doctor or eye doctor. Plan Detail Other Medications New: Coding Level of Care Code Off vis,new,level 3 Diagnoses Acute bacterial conjunctivitis of right eye H10.31 Acute conjunctivitis type: bacterial Conjunctivitis type: acute Laterality: right 06/03/17 0908 <Electronically signed by Umu SINHA> Date Umu SINHA Cosigner Signature: Date (if applicable) CC: PROGRESS Observed: 03/22/2017 Status: COMPLETED Source: [place] 7:04 PM [facility] REPOSITORY O ID: [id number] Author: Rosalie Felipe Service: (none) Author Type: Nurse Practitioner Type: Progress Notes Filed: 03/22/2017 7:05 PM Note Text: This is an Express Care eVisit note for Marian Castorena eVisit/Questionnaire reviewed The chief complaint for the visit - Patient presents with: Cough Recommendations/Treatment plan - Referral Rosalie Felipe CNP HOSP Observed: 03/22/2017 Status: COMPLETED Source: [place] 12:00 AM [facility] REPOSITORY E-Visit (URGDIS) MARIAN CASTORENA ([id number]) 1980 F Date Time Provider Department 03/22/17 ROSALIE FELIPE ([facility]) URGDIS During your visit today, we recorded the following information about you: Rosalie Felipe CNP 03/22/2017 7:05 PM Signed This is an Express Care eVisit note for Marian Castorena eVisit/Questionnaire reviewed The chief complaint for the visit - Patient presents with: Cough Recommendations/Treatment plan - Referral Rosalie Felipe CNP Allergies As of Date: 03/22/2017 Noted Allergy Reaction BELVIQ (LORCASERIN) 08/14/2016 14 - Other: See Comments Comments: Caused depression FLONASE (FLUTICASONE PROPIONATE) 08/01/2010 14 - Other: See Comments Comments: Irritated nose and made her feel more congested INVOKANA (CANAGLIFLOZIN) 06/23/2015 14 - Other: See Comments Comments: Yeast infection LISINOPRIL 04/09/2016 3 - Cough METFORMIN 09/10/2013 6 - Diarrhea Comments: She has tried metformin and metformin ER. Date Reviewed: 03/15/2017 [facility] Rajni - Fully Assessed Reason for Visit: Cough [28] Primary Visit Diagnosis:Cough [R05] Prescriptions as of 03/22/2017 Sig: OMEPRAZOLE 20 MG CAPSULE,DALTON* TAKE 1 CAPSULE BY MOUTH DAILY* INSULIN GLARGINE 300 UNIT/ML * INJECT 70 UNITS SUBCUTANEOUSL* ALBUTEROL SULFATE CONCENTRATE* Inhale 0.5 mL as instructed o* ALBUTEROL SULFATE HFA 90 MCG/* Inhale 2 Puffs as instructed * INSULIN GLARGINE 300 UNIT/ML * Inject 70 Units subcutaneousl* DULAGLUTIDE 0.75 MG/0.5 ML CASON* Inject 0.75 mg Subcutaneously* LANCETS Test blood sugar(s) 1 daily. * SERTRALINE 100 MG TABLET Take 1 tablet by mouth once d* LOSARTAN 25 MG TABLET TAKE 1 TABLET BY MOUTH ONCE D* CETIRIZINE 10 MG TABLET Take 1 tablet by mouth once d* DEXAMETHASONE 0.1 % EYE DROPS 1 Drop twice daily as needed * BLOOD SUGAR DIAGNOSTIC STRIPS Test glucose 3 x daily. E11.6* LORAZEPAM 1 MG TABLET Take 1 tablet by mouth twice * PEN NEEDLE, DIABETIC 31 GAUGE* UAD for injections 6 times da* More... Problem List As Of Date 03/22/2017 Noted Resolved POLYCYSTIC OVARIES [E28.2] INVALID FOR* BMI 60.0-69.9, adult (HCC) [Z68.44] INVALID FOR* Hypothyroidism [E03.9] INVALID FOR* OTHER PSORIASIS [L40.8] INVALID FOR* Dysmetabolic syndrome X [E88.81] 08/10/2013 PLANTAR Fasciitis, left [M72.2] INVALID FOR*08/13/2014 More... HPV (human papillomavirus) INVALID FOR*08/13/2014 More... Depressive disorder, not elsewhere classified [* 08/13/2014 Diabetes mellitus type 2, uncontrolled, without*INVALID FOR*01/28/2015 More... Diabetes mellitus type 2, uncontrolled, without*INVALID FOR* Family history of clotting disorder [Z83.2] INVALID FOR*05/30/2015 Anxiety neurosis [F41.1] INVALID FOR* Recurrent major depression in partial remission*INVALID FOR* Acquired hypothyroidism [E03.9] INVALID FOR* Prothrombin gene mutation (HCC) [D68.52] INVALID FOR* More... 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)*INVALID FOR* Essential hypertension [I10] INVALID FOR* Well adult exam [Z00.00] INVALID FOR* Patient on ketogenic diet [Z78.9] INVALID FOR* Hypothyroidism, acquired [E03.9] INVALID FOR* Level of Service: ONLINE E/M BY PHYS [[id number]] Encounter Status:Closed by ROSALIE FELIPE CNP on 03/22/17 ALLERGIES ALLERGIES DATE TYPE / CODE NAME / CODE REACTION SEVERITY SOURCE 06/02/2017 Drug No Known Unknown Nan Allergy/416 Allergies/[id number] [facility] [id number]([facility] 8(RXNORM) [facility] ED CT) Repository 08/14/2016 DRUG LORCASERIN OTHER: SEE C [facility] INGREDI/[address] [place] 754512(SNOM Repository ED CT) 04/09/2016 DRUG LISINOPRIL COUGH [facility] INGREDI/[address] [place] 883818(SNOM Repository ED CT) 06/23/2015 DRUG CANAGLIFLOZIN OTHER: SEE C [facility] INGREDI/[address] [place] 108264(SNOM Repository ED CT) 09/10/2013 DRUG METFORMIN DIARRHEA [facility] IN[facility]I/[address] [place] 238809(SNOM Repository ED CT) 08/01/2010 DRUG FLUTICASONE OTHER: SEE C [facility] INGREDI/[address] [facility] [address] [place] 612448(SNOM Repository ED CT) ENCOUNTERS ENCOUNTERS ADMIT/DISCHARGE ACCOUNT ADMITTING ENCOUNTER LOCATION SOURCE NUMBER CLASS 02/07/[id number] [facility] ing:MTLAB Repository 10/18/2017/10/22/19 [id number] Ambulatory [address] [place] Repository 10/15/2017/10/16/19 [id number] Ambulatory [address] [place] Repository 07/12/[id number] [facility] ing:LABSPEC Repository 06/02/2017/06/03/19 [id number] Ambulatory BMSBuilding:B [address] Repository PAYERS PAYERS ENCOUNTER GUARANTOR PAYER SUBSCRIBER SOURCE 02/07/2018 MARIAN R Primary MARIAN R Nan [id number] Insurance:AULTCAREPol REYNOLDSB: [facility] icy [place]: [id number] [id number] Repository 527[address]Upw: [phone] e Date:0141-11-29OH [phone] () [facility] [address] [place] [id number]: 02/07/2018 Secondary NOT GIVENUNK Nan Insurance:SELF PAY [facility] Number: Effective Repository Date:2018-02-07 07/12/2017 MARIAN Primary MARIAN Nan [id number] Insurance:AULTCAREPol REYNOLDSB: [facility] icy Number: [id number] Repository 58169Dlt: 330 e Date:1704-17-66RG [phone] () [address], [place] [address]NO: 07/12/2017 Secondary NOT GIVENUNK Nan Insurance:SELF PAY [facility] Number: Effective Repository Date:2017-07-12 06/02/2017 MARIAN Primary MARIAN Icard [id number] Insurance:AULTCAREPol [facility]: [id number] [id number] Repository 77[address]Wcv: [phone]) e Date:7116-87-45RY [phone] () [address], [place] [address]XQ: 06/02/2017 Secondary NOT GIVENUNK Icard Insurance:SELF PAY [facility] Number: Effective Repository Date:2017-06-02
== END ==
PROVIDERS: Family Provider Family Medicine; PCP Family Medicine; Referring Provider Family Medicine; Visit Provider Family Medicine
DX: E03.9 Hypothyroidism, unspecified (principal)
CPT/HCPCS: 36415; 83036; 84439; 84443; 84481

== ENCOUNTER → 2018-11-07 16:17 | Outpatient (CLI) | payer OTHER, SELFPAY ==
[2018-11-07 18:35] LABS: Chlamydia Trachomatis by PCR Negative (Negative); Neisserai gonorrhoeae by PCR Negative (Negative); Probe Check PASS; Sample Adequacy Control PASS; Specimen Processing Control PASS
[2018-11-12 12:10] LABS: HPV APTIMA, High Risk Negative (Negative)
== END ==
PROVIDERS: Family Provider Family Medicine; PCP Family Medicine; Referring Provider Obstetrics & Gynecology; Visit Provider Obstetrics & Gynecology
DX: Z12.4 Encounter for screening for malignant neoplasm of cervix (principal); Z11.3 Encounter for screening for infections with a predominantly sexual mode of transmission
CPT/HCPCS: 87491; 87591; 87624; 88175; G0145

== ENCOUNTER → 2018-12-30 09:38 | Outpatient (CLI) | payer OTHER, SELFPAY ==
[2018-12-30 13:00] LABS: ALB/GLOB Ratio 0.7 RATIO (0.9-2.4); AST(SGOT) 13 U/L (15-37); Alanine Aminotransfer ALT/SGPT 19 U/L (13-56); Albumin, Serum 3.3 g/dL (3.2-5.0); Alkaline Phosphatase 94 U/L (45-117); Anion Gap 5 (5-15); BUN 9 mg/dL (7-18); BUN/Creat Ratio 13.6 RATIO (10-20); Calcium,Total 8.4 mg/dL (8.5-10.1); Chloride 104 mmol/L (98-107); Cholesterol 187 mg/dL (200); Creatinine, Serum 0.66 mg/dL (0.55-1.02); EST Glomerular Filtration Rate 107 mL/min (>60); Est Glom Filt Rate - Afr Amer 129 mL/min (>60); Globulin 4.6 g/dL (2.2-4.2); Glucose 136 mg/dL (74-106); High Density Lipoprotein 43 mg/dL; Protein, Total 7.9 g/dL (6.4-8.2); Sodium Level 137 mmol/L (136-145); Triglycerides 139 mg/dL; Very Low Density Lipoprotein 28 mg/dL (5-40)
[2018-12-30 13:20] LABS: Microalbumin:Creatinine Ratio 128.5 mg/g CRE (<30 mg/g CRE)
== END ==
PROVIDERS: Family Provider Family Medicine; PCP Family Medicine; Referring Provider Family Medicine; Visit Provider Family Medicine
DX: E11.9 Type 2 diabetes mellitus without complications (principal)
CPT/HCPCS: 36415; 80053; 80061; 82043; 82570

== ENCOUNTER 2021-02-15 11:31 | Outpatient (CLI) | payer OTHER, SELFPAY ==
[2021-02-15 11:41] VITALS: BP 139/93; PULSE 76; RESP 18; TEMP 36.4; O2SAT 100; BMI 52.8
[2021-02-15] MEDS: 0.9% Saline Lock 10 ML Syringe IV (11:51)
[2021-02-15 12:36] VITALS: BP 132/78; PULSE 71; RESP 16; TEMP 37.1; O2SAT 98
[2021-02-15 13:27] VITALS: BP 133/79; PULSE 71; RESP 16; TEMP 36.8; O2SAT 98
== END 2021-02-15 13:36 | disposition home or self-care (01) ==
LOC: MS3OUT 11:32 → MS3 11:32
PROVIDERS: PCP Family Medicine; Referring Provider Nurse Practitioner Adult Health; Visit Provider Nurse Practitioner Adult Health
DX: Z23 Encounter for immunization (principal); U07.1 COVID-19
CPT/HCPCS: J7050; M0245; Q0245; A4216

== ENCOUNTER → 2022-02-14 | Outpatient (CLI) | payer OTHER, SELFPAY ==
[2022-02-14 10:09] LABS: Absolute Lymphocyte Count 1.91 X10^3/uL (0.83-4.51); Absolute Neutrophil Count 4.2 X10^3/uL (2.0-7.7); Basophil# 0.04 X10^3/uL; Basophil% 0.6 % (0-1); Eosinophil# 0.08 X10^3/uL; Eosinophils% 1.2 % (0-5); Hematocrit 40.2 % (37-47); Hemoglobin 13.1 g/dL (12.0-15.0); Lymphocyte # 1.91 X10^3/ul (0.83-4.51); Lymphocyte % 29.4 % (19-41); Mean Corp Hgb Conc 32.6 g/dL (32-36); Mean Corpuscular Hgb 27.2 pg (27.0-32.0); Mean Corpuscular Volume 83.6 fL (81-99); Mean Platelet Vol. 11.5 fl (6.2-12.0); Monocyte# 0.28 X10^3/uL; Monocyte% 4.3 % (0-10); NRBC Flagged by Analyzer 0 % (0-5); Neutrophil # 4.17 X10^3/uL (2.7-7.7); Neutrophil % 64.3 % (47-70); Platelet Count 245 K/mm3 (150-450); RBC Distribution Width CV 14.2 % (11.6-14.6); RBC Distribution Width SD 43.2 fl (35.1-43.9); Red Blood Count 4.81 M/mm3 (4.2-5.4); White Blood Count 6.5 K/mm3 (4.4-11.0)
[2022-02-14 10:33] LABS: Vitamin B12 684 pg/mL (211-911)
[2022-02-14 10:45] LABS: Ferritin 81 ng/mL (8-252); Iron 76 ug/dL (50-170); Iron Binding Capacity,Total 293 ug/dL (250-450); PERCENT IRON SATURATION 25.9 % (15.0-55.0); Thyroid Stim Hormone (TSH) 2.12 uIU/mL (0.358-3.74)
== END | disposition home or self-care (01) ==
LOC: MTLAB 07:19
PROVIDERS: PCP Family Medicine; Referring Provider Family Medicine; Visit Provider Family Medicine
DX: R53.83 Other fatigue (principal)
CPT/HCPCS: 36415; 82607; 82728; 83540; 83550; 84443; 85025

== ENCOUNTER → 2022-10-26 | Outpatient (CLI) | payer OTHER, SELFPAY ==
[2022-10-26 10:07] LABS: Absolute Lymphocyte Count 2.23 X10^3/uL (0.83-4.51); Absolute Neutrophil Count 3.9 X10^3/uL (2.0-7.7); Basophil# 0.04 X10^3/uL; Basophil% 0.6 % (0-1); Eosinophil# 0.08 X10^3/uL; Eosinophils% 1.2 % (0-5); Hemoglobin 12.7 g/dL (12.0-15.0); Lymphocyte # 2.23 X10^3/ul (0.83-4.51); Lymphocyte % 34.1 % (19-41); Mean Corpuscular Hgb 26.6 pg (27.0-32.0); Mean Platelet Vol. 11.4 fl (6.2-12.0); Monocyte# 0.32 X10^3/uL; Monocyte% 4.9 % (0-10); NRBC Flagged by Analyzer 0 % (0-5); Neutrophil # 3.86 X10^3/uL (2.7-7.7); Platelet Count 220 K/mm3 (150-450); RBC Distribution Width CV 13.7 % (11.6-14.6); RBC Distribution Width SD 43.2 fl (35.1-43.9); Red Blood Count 4.77 M/mm3 (4.2-5.4); White Blood Count 6.5 K/mm3 (4.4-11.0)
[2022-10-26 10:42] LABS: Microalbumin,Random Urine 35.8 mg/L (NO RANGE EST.); Microalbumin:Creatinine Ratio 30.3 mg/g CRE (<30 mg/g CRE)
[2022-10-26 10:58] LABS: Vitamin B12 593 pg/mL (211-911); Vitamin D,25 Hydroxy 47.2 ng/mL
[2022-10-26 11:05] LABS: ALB/GLOB Ratio 0.8 RATIO (0.9-2.4); AST(SGOT) 9 U/L (15-37); Alanine Aminotransfer ALT/SGPT 20 U/L (13-56); Albumin, Serum 3.3 g/dL (3.2-5.0); Alkaline Phosphatase 76 U/L (45-117); Anion Gap 7 (5-15); BUN 10 mg/dL (7-18); BUN/Creat Ratio 15.3 RATIO (10-20); Calcium,Total 8.6 mg/dL (8.5-10.1); Chloride 105 mmol/L (98-107); Cholesterol 180 mg/dL (200); Creatinine, Serum 0.66 mg/dL (0.55-1.02); EST Glomerular Filtration Rate 106 mL/min (>60); Est Glom Filt Rate - Afr Amer 128 mL/min (>60); Ferritin 64 ng/mL (8-252); Globulin 4.1 g/dL (2.2-4.2); Glucose 152 mg/dL (74-106); High Density Lipoprotein 48 mg/dL; Protein, Total 7.4 g/dL (6.4-8.2); Sodium Level 138 mmol/L (136-145); Triglycerides 186 mg/dL; Very Low Density Lipoprotein 37 mg/dL (5-40)
== END | disposition home or self-care (01) ==
LOC: MTLAB 07:04
PROVIDERS: PCP Family Medicine; Referring Provider Family Medicine; Visit Provider Family Medicine
DX: Z00.00 Encounter for general adult medical examination without abnormal findings (principal); E11.9 Type 2 diabetes mellitus without complications; K21.9 Gastro-esophageal reflux disease without esophagitis; Z90.3 Acquired absence of stomach [part of]
CPT/HCPCS: 36415; 80053; 80061; 82043; 82306; 82570; 82607; 82728; 85025

== ENCOUNTER → 2023-10-24 | Outpatient (CLI) | payer MEDICAID, SELFPAY ==
[2023-10-24 10:07] LABS: Absolute Lymphocyte Count 2.53 X10^3/uL (0.83-4.51); Absolute Neutrophil Count 3.7 X10^3/uL (2.0-7.7); Basophil# 0.04 X10^3/uL; Basophil% 0.6 % (0-1); Eosinophils% 1.5 % (0-5); Hematocrit 40.3 % (37-47); Hemoglobin 12.9 g/dL (12.0-15.0); Lymphocyte # 2.53 X10^3/ul (0.83-4.51); Lymphocyte % 37.7 % (19-41); Mean Corpuscular Hgb 26.8 pg (27.0-32.0); Mean Corpuscular Volume 83.8 fL (81-99); Monocyte# 0.32 X10^3/uL; Monocyte% 4.8 % (0-10); NRBC Flagged by Analyzer 0 % (0-5); Neutrophil % 55.1 % (47-70); Platelet Count 229 K/mm3 (150-450); RBC Distribution Width CV 13.5 % (11.6-14.6); RBC Distribution Width SD 41.8 fl (35.1-43.9); Red Blood Count 4.81 M/mm3 (4.2-5.4); White Blood Count 6.7 K/mm3 (4.4-11.0)
[2023-10-24 10:24] LABS: ALB/GLOB Ratio 0.8 RATIO (0.9-2.4); AST(SGOT) 12 U/L (15-37); Alanine Aminotransfer ALT/SGPT 19 U/L (13-56); Albumin, Serum 3.3 g/dL (3.2-5.0); Alkaline Phosphatase 71 U/L (45-117); Anion Gap 7 (5-15); BUN 10 mg/dL (7-18); BUN/Creat Ratio 12.3 RATIO (10-20); Calcium,Total 8.9 mg/dL (8.5-10.1); Chloride 105 mmol/L (98-107); Cholesterol 226 mg/dL (200); Creatinine, Serum 0.81 mg/dL (0.55-1.02); EST Glomerular Filtration Rate 82 mL/min (>60); Est Glom Filt Rate - Afr Amer 100 mL/min (>60); Ferritin 102 ng/mL (8-252); Globulin 4.2 g/dL (2.2-4.2); Glucose 204 mg/dL (74-106); High Density Lipoprotein 51 mg/dL; Potassium 4.1 mmol/L (3.5-5.1); Protein, Total 7.5 g/dL (6.4-8.2); Sodium Level 137 mmol/L (136-145); Triglycerides 235 mg/dL; Very Low Density Lipoprotein 47 mg/dL (5-40)
[2023-10-24 10:31] LABS: Hemoglobin A1c 8.8 % (3.8-5.6)
[2023-10-24 10:54] LABS: Microalbumin,Random Urine 50.5 mg/L (NO RANGE EST.); Microalbumin:Creatinine Ratio 32.4 mg/g CRE (<30 mg/g CRE)
[2023-10-24 10:56] LABS: Vitamin B12 324 pg/mL (211-911)
== END | disposition home or self-care (01) ==
PROVIDERS: PCP Family Medicine; Referring Provider Family Medicine; Visit Provider Family Medicine
DX: Z00.00 Encounter for general adult medical examination without abnormal findings (principal); E11.9 Type 2 diabetes mellitus without complications; E66.9 Obesity, unspecified; D68.51 Activated protein C resistance
CPT/HCPCS: 36415; 80053; 80061; 82043; 82306; 82570; 82607; 82728; 83036; 85025